=== PATIENT | female | born 1950 | race Caucasian/White ===

== ENCOUNTER → 2020-01-05 | Outpatient (CLI) | payer MEDICARE | END | disposition home or self-care (01) | LOC: LABWHC1 16:23 | PROVIDERS: ATTEND Orthopaedic Surgery | DX: Z53.9 Procedure and treatment not carried out, unspecified reason (principal) ==

== ENCOUNTER 2020-01-08 08:02 | Day surgery (SDC) | payer MEDICARE, OTHER ==
[2020-01-05 14:31] VITALS: BMI 20.9
[~2020-01-08 08:02] MED LIST: ACETAMINOPHEN TAB 500 MG TAB PO ONE; GABAPENTIN 300 MG CAP PO ONE; MELOXICAM 7.5 MG TAB PO ONE; ONDANSETRON 4 MG/2 ML VIAL IVP ONE; ROPIVACAINE 246.25 MG, EPINEPHrine 0.5 MG, KETOROLAC 30 MG, cloNIDine HCL/PF 80 MCG, WA... MISCELLANE ONE; TRANEXAMIC ACID 1,000 MG in SODIUM CHLORIDE 0.9% 100 ML IVPB ONE
[2020-01-08] MEDS ORDERED: LACTATED RINGERS 1,000 ML IV SCH ×2 (08:20→12:45)
[2020-01-08] MEDS ORDERED: HYDROmorphone 0.5 MG/0.5 ML SYRINGE IVP PRN ×4 (08:20→12:43)
[2020-01-08] MEDS ORDERED: ONDANSETRON 4 MG/2 ML VIAL IVP ONE (08:20)
[2020-01-08] MEDS ORDERED: MIDAZOLAM 2 MG/2 ML VIAL IV PRN (08:20)
[2020-01-08] MEDS ORDERED: DEXAMETHASONE SOD PHOSPHATE 10 MG/ML 1 ML VIAL IV ONE (08:20)
[2020-01-08] MEDS ORDERED: fentaNYL (PF) 50 MCG/ML 2 ML AMP IVP ONE (09:38)
[2020-01-08] MEDS ORDERED: ROPIVACAINE 0.2%-NS ON-Q PUMP 1,090 MG, EMPTY PAIN BALL 1 EACH MISCELLANE PRN (09:54)
--- NOTE | 2020-01-08 09:54 | P.ANPRN ---
Procedure Note - Anesthesia - Nerve Block Performed Left Adductor Canal Infusion Time Out Performed: Yes Date of Procedure: 01/08/20 Procedure Start Time: 09:37 Procedure Stop Time: 09:48 Location of Patient: PreOp Indication: Requested by Surgeon Specifically requested for management of pain by DrRochelle: Yariel Shah Sedation Type: Sedate with meaningful contact maintained Preparation: Sterile Prep, Sterile Dressing Position: Supine Needle Types: Pajunk Needle Gauge: 21 Ultrasound used to visualize needle placement: Yes Ultrasound used to observe medication spread: Yes Injectate: 0.5% Ropivacaine (see comment for volume) (20 ml plus Dexamethason 4 mg) Blood Aspirated: No Pain Paresthesia on Injection Noted: No Resistance on Injection: Normal Image Stored and Saved: Yes Events: Uneventful and Well Tolerated
[2020-01-08] MEDS ORDERED: SUCCINYLCHOLINE CHLORIDE 100 MG/5 ML SYR IV ONE (10:25)
[2020-01-08] MEDS ORDERED: GLYCOPYRROLATE 0.2 MG/ML 2 ML VIAL ONE (10:25)
[2020-01-08] MEDS ORDERED: ROPIVACAINE 5 MG/ML 30 ML VIAL ONE (10:25)
[2020-01-08] MEDS ORDERED: SODIUM CHLORIDE 0.9% 100 ML BAG ONE (10:25)
[2020-01-08] MEDS ORDERED: TRANEXAMIC ACID 1,000 MG/10 ML VIAL ONE (10:25)
[2020-01-08] MEDS ORDERED: HYDROmorphone (PF) 1 MG/ML ONE (10:25)
[2020-01-08] MEDS ORDERED: PROPOFOL 10 MG/ML 20 ML VIAL IV ONE (10:25)
[2020-01-08] MEDS ORDERED: fentaNYL (PF) 50 MCG/ML 2 ML AMP ONE (10:25)
[2020-01-08] MEDS ORDERED: ROCURONIUM BROMIDE 10 MG/ML 5 ML VIAL IV ONE (10:25)
[2020-01-08] MEDS ORDERED: LIDOCAINE 1% INJ 10MG/ML (20 ML MDV) ONE (10:25)
[2020-01-08] MEDS ORDERED: NEOSTIGMINE 1 MG/ML 10 ML VIAL ONE (10:25)
[2020-01-08] MEDS ORDERED: ceFAZolin 3,000 MG in SODIUM CHLORIDE 0.9% IRRIGATIO 3,000 ML IRRIGATION ONE (10:27)
[2020-01-08] MEDS ORDERED: LACTATED RINGERS 1,000 ML IV ONE (11:24)
--- NOTE | 2020-01-08 12:05 | P.OP ---
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 ANESTHESIA: Spinal ESTIMATED BLOOD LOSS: 100 ml. SUPPLY ANALYST: Nino Benítez PA-C (assistance with: patient positioning, retraction, exposure, hemostasis, leg positioning, implantation, irrigation, closure, dressing) COMPLICATIONS: None apparent. COMPONENTS IMPLANTED: Journey II total knee system from [employer] INDICATIONS: Mrs. Amezcua is a 69 year old woman with a history of left knee osteoarthritis. The patient's knee is end-stage, has severe genu valgum, moderate ligament laxity, osteoporosis, and conservative management has failed. The operation of knee replacement has been discussed at length in the office, as well as potential risks and complications. These are inclusive of, but not limited to: bleeding, infection, scarring, discomfort, blood vessel and nerve damage, need for further surgery, failure to relieve symptoms, persistence, recurrence, or worsening of problems, loosening, dislocation, wear, blood clot, pulmonary embolism, , gait dysfunction, stiffness, and other risks as discussed in the office. [employer] computer templating was performed several weeks preoperatively and the surgical plan was confirmed and approved. The patient elects to proceed and the consent form has been signed. PROCEDURE: The patient was taken to the operating room and positioned on the operating room table in the supine position. Anesthesia was initiated. Care was taken to make sure that all pressure points were adequately padded. The operative lower extremity was prepped and draped in the usual aseptic fashion using ChloraPrep. Ioban drape was used for the case and the patient received intravenous antibiotics within one hour of the incision. A pneumotourniquet and leg christian were used for the case. The limb was exsanguinated with an Esmarch bandage and the tourniquet was inflated to 350 mmHg. Time-out was called confirming the patient's identity, side, procedure and administration of antibiotics and tranexamic acid. The incision was then created midline directly over the left knee, carried down through skin and into the subcutaneous tissues and down to fascia. Full thickness subcutaneous medial flap was developed. Medial parapatellar arthrotomy was performed and the interior of the knee was inspected. There was end-stage osteoarthritis of the knee with a mild to moderate genu valgum type deformity. The fat pad was excised and proximal medial release on the tibia was completed using meticulous dissection and a curved osteotome. The anterior cruciate ligament was taken down. Note was made of significant attrition of the anterior and significant degenerative appearance of the cruciate ligaments. The exposure was excellent. The knee was flexed 90 degrees and the patella was everted. The [employer] pre- made distal cutting block was attached and pinned into position. The planned cut was analyzed visually and with the alignment alf and found to be satisfactory without the need for any adjustment. The oscillating saw was then used to make the distal femoral cut and make the alignment holes for the 5 in 1 block. This cut was confirmed to be flat with the flat end of an osteotome. The 5 in 1 block was then used to create the anterior posterior condylar resections and the chamfer cuts. The retractors were placed around the tibia and the tibial surface was addressed. The [employer] pre-made guide was placed onto the exposed tibial surface and pinned into position to jesi the rotational alignment. The alignment of the guide was checked for depth of plannned resection, slope, and varus valgus. Guide was confirmed to be in good position and the tibial cut was then created with protection of the posterior neurovascular structures and the collateral ligaments. The tibial cut surface was removed and sized. Spacer block technique was then used to confirm that the flexion and extension gaps were equal. Note was made of significant attenuation of the medial ligament structures as noted previously, and therefore no significant medial release was performed. Minimal lateral releases were performed to equalize the flexion-extension gaps as possible. This included release of the posterior cruciate ligament, which was excessively tight in this patient. Prior to placing trial components, anesthetic solution consisting of ropivicaine with epinephrine, ketorolac, and clonidine was injected carefully and methodically in a grid pattern using aspiration technique into the soft tissue around the knee circumferentially, starting with the deeper tissues first and progressing to fascia, and then finally the skin/subcutaneous tissue. Particular care was taken when injecting the posterior capsule, with avoidance of the midline posterior area. The trial components were inserted. The tibial tray was allowed to self center and the patella was noted to track very well. The position of the tibial component was marked and noted to be nearly exactly aligned with the pre-drilled holes from the [employer] guide. The tibia was then finished for a stemmed tibial component. Patellar resurfacing was performed using a reamer. The size of the required patellar component was estimated and the patellar surface was then reamed down to a residual thickness which would recreate the pauma thickness with the component. The exact placement of the patellar component was adjusted for position based on preoperative x-rays and intraoperative findings, medializing the position due to the patient's severe pre-existing valgus. Trial components were removed and the cut surfaces of the bone were pulse lavaged thoroughly and dried. Cement was mixed on the back table and applied to the final components. Cement was then applied to the tibial surface and pressurized into the surface using finger pressurization technique. The tibial component was then applied and excess cement was removed after it was impacted securely and noted to be flush with the cut surface. In similar fashion, the cement was applied to the cut femoral surface, pressurized in using finger pressurization and the component was impacted into place. Excess cement was removed. I decided to use a constrained polyethylene spacer due to the attenuation of the medial tissues and trialing this component produced satisfactory stability in the medial lateral directions. The polyethylene spacer was then implanted and locked into position. The patellar component was then applied in similar technique and a patellar clamp was used to hold the patella in place as the cement hardened. Once the cement had fully hardened, the knee was reinspected. Any other cement extrusion was removed and final kinematic testing showed range of motion from 0 to 130 degrees with excellent stability, both medially and laterally and appropriate alignment of the leg. Patellar tracking was excellent. The knee was then thoroughly pulse lavaged with normal saline. The tourniquet was deflated and hemostasis was obtained with electrocautery and IV tranexamic acid, 1 g given at the start of the operation and 1 g at the start of closure. Closure was with #2 Ethibond in the fascia/capsule and supplemented with #2 Quill, 2-0 Vicryl suture was used for the subcutaneous tissues and 3-0 Quill for the skin. Dermabond/Steri-Strips were then applied. A lightly compressive dressing was applied using Webril and an Blu wrap. The patient was then transferred to stretcher and taken to the recovery room in stable condition. Sponge and needle counts were correct.
[2020-01-08] MEDS ORDERED: MAGNESIUM HYDROXIDE 2,400 MG/10 ML CUP PO PRN (12:43)
[2020-01-08] MEDS ORDERED: NALOXONE 0.4 MG/ML 1 ML VIAL IV PRN (12:43)
[2020-01-08] MEDS ORDERED: hydrOXYzine PAMOATE 25 MG CAP PO PRN (12:43)
[2020-01-08] MEDS ORDERED: ONDANSETRON 4 MG/2 ML VIAL IVP PRN (12:43)
[2020-01-08] MEDS ORDERED: DIAZEPAM 5 MG TAB PO PRN ×2 (12:43)
[2020-01-08] MEDS ORDERED: HYDROcodone/APAP 7.5-325MG 1 EACH TAB PO PRN ×2 (12:47→12:51)
[2020-01-08 13:01] VITALS: RESP 16
--- NOTE | 2020-01-08 13:22 | XR ---
EXAMINATION TYPE: XR knee limited LT DATE OF EXAM: 01/08/2020 CLINICAL HISTORY: Left knee pain and arthritis status post total knee replacement. TECHNIQUE: Portable AP and crosstable lateral views of the left knee are obtained immediately postop eratively. COMPARISON: None FINDINGS: [place] osseous structures are somewhat demineralized. Metallic hardware from total left kn ee arthroplasty is seen and appears satisfactory in alignment and position. There is evidence of rec ent surgery with diffuse subcutaneous gas and soft tissue swelling along with suprapatellar gas all noted. IMPRESSION: METALLIC HARDWARE FROM TOTAL LEFT KNEE ARTHROPLASTY IS SATISFACTORY IN ALIGNMENT.
[2020-01-08 14:19] VITALS: TEMP 98.1
[2020-01-08 16:21] VITALS: BP 134/74; PULSE 61
[2020-01-08] MEDS ORDERED: SENNOSIDES-DOCUSATE SODIUM 1 EACH TAB PO SCH (21:00)
[2020-01-08] MEDS ORDERED: ASPIRIN 81 MG PO SCH (21:00)
--- NOTE | 2020-01-10 08:43 | CDI ---
Outpatient Documentation Clarification Form Date: 01/10/20 CDS/General Repair Mechanic Name: Deana Aly Phone: If any questions, call Halima Chester It Support Analyst at [phone] Patient Name: Karlie Romeo Admit Date: 01/08/20 Discharge Date: 01/08/20 ATTENTION: The [facility] Coding Staff appreciate your assistance in clarifying documentation. Please respond to the clarification below the line at the bottom and electronically sign. The [facility] Coding staff will review the response and follow-up if needed. Please note: Queries are made part of the Legal Health Record. If you have any questions, please contact the It Support Analyst. Dear Dr. Shah, Please provide clarification as to the laterality of the procedure performed. The H & P and pathology report both state left knee. On the procedure note, it is documented as the right knee. Please clarify. Thank you for your kind consideration. MTDD
--- NOTE | 2020-01-23 11:43 | CDI ---
Outpatient Documentation Clarification Form Date: 01/23/20 CDS/Bushel Worker Name: Deana Aly Phone: If any questions, call Halima Chester Printing Equipment Mechanic Apprentice at [phone] Patient Name: Luh Amezcua Admit Date: 01/08/20 Discharge: 01/08/20 ATTENTION: The [facility] Coding Staff appreciate your assistance in clarifying documentation. Please respond to the clarification below the line at the bottom and electronically sign. The [facility] Coding staff will review the response and follow-up if needed. Please note: Queries are made part of the Legal Health Record. If you have any questions, please contact the Printing Equipment Mechanic Apprentice. Dear Dr. Shah, Please provide clarification as to laterality of procedure. Preop & post op dx on Op report - Left Knee. Path report - left knee. Please re-dictate the operative report to correct the typo under Procedure in the second paragraph, the first sentence. Please see below. "The incision was then created midline directly over the right knee, carried down through the skin and into the subcutaneous tissues and down to the fascia." Thank you for your kind consideration. DONE 02/07/2020 AT 2:39 PM. KADEEM
== END 2020-01-08 17:33 | disposition home or self-care (01) ==
LOC: OR 08:02 → 4SSUR 12:52 → OR 17:33
PROVIDERS: ATTEND Orthopaedic Surgery
DX: M17.12 Unilateral primary osteoarthritis, left knee (principal); M81.0 Age-related osteoporosis without current pathological fracture
CPT/HCPCS: 27447; 64448; 97161; 76942; 88300; 73560; C1713; C1776; J2250; J0171; J1100; J2710; J0690 ×2; J2405; J2001; J3010; J1885; J1170; J2795 ×2; J0330; J2704; J0735